=== PATIENT | female | born 1960 | race Caucasian/White ===

== ENCOUNTER 2018-01-10 13:21 | Emergency (ER) | payer BC ==
--- NOTE | 2018-01-10 13:36 | ED Physician Documentation ---
PD HPI UPPER EXT INJURY - Stated complaint Stated Complaint: RT EBLOW INJURY - Chief complaint Chief Complaint: Ext Problem - History obtained from History obtained from: Patient - History of Present Illness Location: Right Type of injury: Fall (stubbed toe on uneven ground, causing fall forward and she tried to catch fall with hands. Landed to right palm and felt pain and give at right elbow. Denies other injury.) Where injury occurred: Street Timing - onset: Today Timing - duration: Hours (1) Timing - details: Abrupt onset, Still present Improved by: Immobilization. No: Rest Worsened by: Moving, Palpating Associated symptoms: No: Weakness, Numbness Contributing factors: Prior ortho surgery (had carpal tunnel left wrist by ortho back home ([place]). They are visiting and returning in a few days.) Similar symptoms before: Has not had sx before Recently seen: Not recently seen Review of Systems Constitutional: denies: Fever Nose: denies: Rhinorrhea / runny nose, Congestion Throat: denies: Sore throat Cardiac: denies: Chest pain / pressure, Palpitations Respiratory: denies: Dyspnea, Cough GI: denies: Abdominal Pain, Nausea, Vomiting Musculoskeletal: reports: Joint pain (right elbow) Neurologic: denies: Focal weakness, Numbness, Altered mental status, Headache, Head injury PD PAST MEDICAL HISTORY - Past Medical History Cardiovascular: None Respiratory: None Neuro: None - Present Medications Home Medications: Ambulatory Orders Medication Instructions Recorded Confirmed Fexofenadine HCl [Wendy Allergy] 01/10/18 Lisinopril [Zestril] 60 mg PO 01/10/18 - Allergies Allergies/Adverse Reactions: Allergies Allergy/AdvReac Type Severity Reaction Status Date / Time No Known Drug Allergies Allergy Verified 01/10/18 13:30 PD ED PE NORMAL - Vitals Vital signs reviewed: Yes - General General: Alert and oriented X 3, Well developed/nourished, Other (makred pain and obvious elbow deformity. ) - HEENT HEENT: Atraumatic, Pharynx benign (she is able to open her mouth widely and I can see back of throat clearly. ) - Neck Neck: Supple, no meningeal sign, No bony TTP - Respiratory Respiratory: Clear bilaterally - Abdomen Abdomen: Soft, Non tender - Back Back: No CVA TTP, No spinal TTP - Derm Derm: Normal color, Warm and dry - Extremities Extremities: No tenderness to palpate (at shoulder nor wrist, only at elbow), No edema, No calf tenderness / cord, Other (right elbow with effusion, deformity and tenderness; pain with any attempt ROM. Normal color and pulses distally. She can move wrist flex/ext. Normal sensation in fingers. ) - Neuro Neuro: Alert and oriented X 3, No motor deficit, No sensory deficit, Normal speech Results - Vitals Vitals: Vital Signs - 24 hr 01/10/18 01/10/18 01/10/18 13:28 15:05 15:12 Temperature 36.4 C L Heart Rate 77 78 75 Respiratory 18 16 16 Rate Blood Pressure 116/81 H 128/84 H 105/74 O2 Saturation 95 98 99 01/10/18 01/10/18 01/10/18 15:16 15:30 15:50 Temperature Heart Rate 70 83 72 Respiratory 20 17 17 Rate Blood Pressure 114/89 H 142/110 H O2 Saturation 100 99 01/10/18 16:25 Temperature Heart Rate 72 Respiratory 16 Rate Blood Pressure 139/96 H O2 Saturation 100 Oxygen O2 Source Room air - Rads (name of study) right elbow Radiology: Prelim report reviewed, EMP read contemporaneously (posterior dislocation and radial neck fracture; effusion) post reduction Radiology: Prelim report reviewed (radial head fracture), EMP read contemporaneously (radial head/neck fracture, nondisplaced. Effusion. There are two views taken, one that shows the recurrent dislocation as the arm positioned for xray, and then the second post reduction showing good position, with only lateral taken for that. ) Procedures - Reduction Body part reduced: Right, Elbow Fracture or dislocation: Fracture dislocation Anesthesia: Conscious sedation, Morphine Elbow reduction technique: Traction counter traction Reduction aftercare: NV intact, Xray confirms reduction, Alignment improved, Splint applied, Sling, Patient tolerated well - Procedural sedation Sedation prep: Informed consent, Time out completed, Last meal (small breakfast about 9 am (4 hours [employer])), PE performed, AHA 1 - healthy Sedation medications: morphine, propofol Patient status during sedation: Responds to tactile, Vitals remained stable, Maintained airway, Recovered uneventfully. No: Respiratory depression, Complications Sedation recovery: Recovered uneventfully, Back to baseline PD MEDICAL DECISION MAKING - ED course Complexity details: reviewed results (dislocation and radial head fracture.), re -evaluated patient (she feels better post reduction. then the elbow dislocated when xray post reduction was being taken (with the extension/supination movement ) the elbow dislocated again. Reduction again was done and a posterior splint applied and only lateral view taken with showing good position. ), considered differential, d/w patient, other (I emphasized that the reduction was just initial part of the healing, since there are torn ligaments of the elbow for the dislocation to occur and that there is fracture in the joint as well. She needs close follow up with ortho and she should call tomorrow for an appt for next week, rather than waiting until after she is home this weekend. ) - Sepsis Event Vital Signs: Vital Signs - 24 hr 01/10/18 01/10/18 01/10/18 13:28 15:05 15:12 Temperature 36.4 C L Heart Rate 77 78 75 Respiratory 18 16 16 Rate Blood Pressure 116/81 H 128/84 H 105/74 O2 Saturation 95 98 99 01/10/18 01/10/18 01/10/18 15:16 15:30 15:50 Temperature Heart Rate 70 83 72 Respiratory 20 17 17 Rate Blood Pressure 114/89 H 142/110 H O2 Saturation 100 99 01/10/18 16:25 Temperature Heart Rate 72 Respiratory 16 Rate Blood Pressure 139/96 H O2 Saturation 100 Oxygen O2 Source Room air Departure - Departure Disposition: 01 Home, Self Care Clinical Impression: Accidental fall Qualifiers: Encounter type: initial encounter Qualified Code(s): W19.XXXA - Unspecified fall, initial encounter Elbow dislocation Qualifiers: Encounter type: initial encounter Laterality: right Qualified Code(s): S53.104A - Unspecified dislocation of right ulnohumeral joint, initial encounter Right radial head fracture Qualifiers: Encounter type: initial encounter Fracture type: closed Fracture alignment: nondisplaced Qualified Code(s): S52.124A - Nondisplaced fracture of head of right radius, initial encounter for closed fracture Condition: Stable Record reviewed to determine appropriate education?: Yes Discharge Date/Time: 01/10/18 17:08
[2018-01-10] MEDS ORDERED: ONDANSETRON ODT 4 MG TABLET TL STA (13:53)
[2018-01-10] MEDS ORDERED: MORPHINE 10 MG/ML VIAL IM STA (13:53)
[2018-01-10] MEDS ORDERED: PROPOFOL 200 MG/20 ML VIAL IVP STA ×2 (14:37→15:59)
[2018-01-10] MEDS ORDERED: SODIUM CHLORIDE 0.9% 1,000 ML IV ONE (14:54)
--- NOTE | 2018-01-10 15:08 | XRAY Report ---
Procedure Date: 01/10/2018 Accession Number: [id number] / [id number] Procedure: XR - Elbow 3 View RT CPT Code: FULL RESULT: EXAM: RIGHT ELBOW RADIOGRAPHY EXAM DATE: 01/10/2018 02:23 PM. CLINICAL HISTORY: Fell with right elbow injury. COMPARISON: None. TECHNIQUE: 3 views. FINDINGS: Bone/joints: Posterior dislocation of the radius and ulna. No definite fracture demonstrated although mild cortical flattening along the adjacent margin of the dorsal trochlea is not excluded. Soft Tissues: Normal. No soft tissue swelling. IMPRESSION: 1. Dorsal elbow dislocation. 2. No definite fracture demonstrated. [facility]
--- NOTE | 2018-01-10 15:52 | XRAY Report ---
Procedure Date: 01/10/2018 Accession Number: [id number] / [id number] Procedure: XR - Elbow 2 View RT CPT Code: FULL RESULT: EXAM: RIGHT ELBOW RADIOGRAPHY EXAM DATE: 01/10/2018 03:40 PM. CLINICAL HISTORY: Elbow dislocation post reduction. COMPARISON: 01/10/2018. TECHNIQUE: 2 views. FINDINGS: Bones: There is angulated fracture of the proximal radius. Cortical step-off not seen. Joints: The radial capitellum alignment appears satisfactory. There is persistent dislocation at the humerus and ulna articulation. Soft Tissues: Joint effusion is present. IMPRESSION: 1. Persistent dislocation at the humerus ulna articulation. 2. Angulated radial head fracture of indeterminate age. 3. Satisfactory alignment between distal humerus and proximal radius. RAD[facility]
[2018-01-10 16:25] VITALS: BP 139/96
[2018-01-10] MEDS ORDERED: HYDROcod/ACET 5/325 Prepack 4 PO ONE (17:06)
== END 2018-01-10 17:08 | disposition home or self-care (01) ==
LOC: ED 13:21
DX: S53.104A Unspecified dislocation of right ulnohumeral joint, initial encounter (principal); S52.124A Nondisplaced fracture of head of right radius, initial encounter for closed fracture; W18.30XA Fall on same level, unspecified, initial encounter
CPT/HCPCS: 24600; 73070; 73080; 94770; 99283; Q0162